=== PATIENT | male | born 1955 | race Hispanic/Latino ===

== ENCOUNTER 2016-10-21 14:22 | Observation (INO) | payer BC ==
[2016-10-21 14:32] VITALS: BMI 27.8
--- NOTE | 2016-10-21 14:57 | EDPD ---
HPI Stroke - General Time Seen by Provider: 10/21/16 14:32 Historian: Patient - History of Present Illness Narrative History of Present Illness (Free Text): 10/21/16 14:32 61 year old male presents to the emergency department complaining of sharp headache one hour prior to arrival followed by twitching of the eyelid and left sided body numbness. Denies weakness. Patient also reports a transient period of feeling not being able to talk well which has since resolved. Denies visual changes. No other complaints. Date:: 10/21/16 Time: 14:32 Onset:: Just prior to presenting Timing: Improved rTPA Inclusion/Exclusion - Refusal of Treatment Patient Refused Treatment: No - Inclusion Criteria for Altepase Patient is 18 years or Older: Yes The Clinical Diagnosis of Ischemic Stroke That is Causing a Potentially Disabling Neurological Deficit: Yes Time of Onset is Well Established to be Less Than 270 Minute Before Treatment Would Begin: Yes Risk/Benefit Discussed With Patient/Family Member Present: No - Exclusion Criteria for Altepase Uncontrolled Hypertension at Time of Treatment (Systolic BP above 185 or Diastolic BP above 110 mmHg): No - Warning to TPA With Conditions Following Conditions Weighed Against Anticipated Benefit: Yes Condition: Stroke Serevity Too Mild, Rapid Improvement Past Medical History - Provider Review Nursing Documentation Reviewed: Yes Family/Social History - Family/Social History Family History: Non-Contributory - Review Nursing documentation reviewed.: Yes Allergies/Home Meds Allergies/Adverse Reactions: Allergies No Known Allergies Allergy (Verified 10/21/16 14:31) Home Medications: Home Meds Medication Instructions Recorded Confirmed Unobtainable 10/21/16 10/21/16 Review of Systems - Physician Review All systems were reviewed & negative as marked: Yes - Review of Systems Eyes: absent: Vision Changes Neurological: Headache, Other (Left sided numbness, sensation of not being able to talk (resolved)) ED Stroke Physical Exam Temperature: Afebrile Blood Pressure: Hypertensive Pulse: Regular Respiratory Rate: Normal Appearance: Positive for: Well-Appearing, Non-Toxic, Comfortable Pain Distress: None Mental Status: Positive for: Alert and Oriented X 3 - Systems Exam Head: Present: Atraumatic, Normocephalic Pupils: Present: PERRL Extroacular Muscles: Present: EOMI Conjunctiva: Present: Normal Mouth: Present: Moist Mucous Membranes Pharnyx: Present: Normal Neck: Present: Normal Range of Motion Respiratory/Chest: Present: Clear to Auscultation, Good Air Exchange. No: Respiratory Distress, Accessory Muscle Use Cardiovascular: Present: Regular Rate and Rhythm, Normal S1, S2. No: Murmurs Abdomen: Present: Normal Bowel Sounds. No: Tenderness, Distention, Peritoneal Signs Back: Present: GCS, CN, SP Upper Extremity: Present: Normal Inspection. No: Cyanosis, Edema Lower Extremity: Present: Normal Inspection. No: Edema Neurologic: Present: GCS=15, CN II-XII Intact, Speech Normal, Motor Func Grossly Intact, Normal Sensory Function, Normal Cerebellar Funct, Norm Deep Tendon Reflexes, Gait Normal, Memory Normal, Normal 2Pt Descrimination. No: Pronator Drift, Facial Droop, Dysmetric Finger to Nose, Dysmetric Heel to Chin Skin: Present: Warm, Dry, Normal Color. No: Rashes Lymphatic: Present: OX3, NI, NC Psychiatric: Present: Alert, Oriented x 3, Normal Insight, Normal Concentration Medical Decision Making ED Course and Treatment: Impression: 61 year old male presents to the emergency department complaining of sharp headache one hour prior to arrival followed by twitching of the eyelid and left sided body numbness. Differential Diagnosis included but are not limited to: CVA vs TIA Plan: -- CT Head, EKG, Chest X-ray -- Labs -- Reassess and disposition PROCEDURE: CT HEAD WITHOUT CONTRAST Military Technology Manager : OSMANY ANDRE MD HEMORRHAGE: No intracranial hemorrhage. BRAIN: There are multifocal low-attenuation areas in the right frontal subcortical, left parietal subcortical and left periatrial white matter. There is no mass, mass effect or abnormal extra-axial fluid collection. VENTRICLES: There is mild age-related global parenchymal volume loss and proportionate enlargement of the ventricles and cortical sulci. CALVARIUM: The skull base and calvarium are normal. PARANASAL SINUSES: There is chronic left maxillary sinusitis. There is fluid level in the left frontal sinus and chronic mild ethmoid sinusitis. MASTOID AIR CELLS: Unremarkable as visualized. No inflammatory changes. IMPRESSION: Multifocal right frontal subcortical, left parietal subcortical and left periatrial white matter changes are strictly nonspecific but statistically in this age group most compatible with chronic microangiopathic changes. The other differential considerations include age indeterminate infarct results and demyelination. If clinically indicated, an MRI of the brain without and with contrast may be performed for further evaluation. EKG shows NSR at 70 BPM with LVH, no ST elevations, normal intervals, interpreted by me. Progress Notes: Case discussed with Dr. Abdiaziz Holland on arrival who states the patient is not a TPA candidate secondary to low NIHSS score. 10/21/16 15:07 CT results reviewed. Aspirin ordered. 10/21/16 15:13 On reevaluation patient no longer has any symptoms. Reevaluation NIHSS score is 0, neurological exam unchanged. 10/21/16 16:22 Case discussed with Paige and will place on observation telemetry for TIA. - Critical Care Critical Care Minutes: 30 minutes - Lab Interpretations Lab Results: Lab Results 10/21/16 14:30: POC Glucose (mg/dL) 111 H I have reviewed the lab results: Yes Interpretation: All labs normal - RAD Interpretation Radiology Orders: 10/21/16 14:32 HEAD W/O (CODE STROKE) [CT] Stat 10/21/16 14:33 CHEST PORTABLE [RAD] Stat Radio Antenna Installer: Radiologist - EKG Interpretation Interpreted by ED Physician: Yes Type: 12 lead EKG - Scribe Statement The provider has reviewed the documentation as recorded by the Perlita Coronado Provider Scribe Attestation: All medical record entries made by the Arte were at my direction and personally dictated by me. I have reviewed the chart and agree that the record accurately reflects my personal performance of the history, physical exam, medical decision making, and the department course for this patient. I have also personally directed, reviewed, and agree with the discharge instructions and disposition. NIHSS Scale (Carver) Time Performed: 14:32 - How Severe is the Stoke Baseline Level of Consciousness: 0=Alert LOC to Questions: 0=Both comments correct LOC to commands: 0=Obeys both correctly Best Gaze: 0=Normal Visual: 0=No visual loss Facial: 0=Normal Motor Arm - Left: 0=No drift Motor Arm - Right: 0=No drift Motor Leg - Left: 0=No drift Motor Leg - Right: 0=No drift Limb Ataxia: 0=Absent Sensory: 0=Normal Best Language: 0=No aphasia Dysarthia: 0=Normal articulation Extinction & Inattention (Neglect): 0=Normal, no object Score: 0 Risk Level: No Stroke Risk Disposition/Present on Arrival - Present on Arrival Any Indicators Present on Arrival: No - Disposition Have Diagnosis and Disposition been Completed?: Yes Diagnosis: Transient cerebral ischemia Disposition: HOSPITALIZED Disposition Time: 15:31 Patient Plan: Observation Condition: FAIR
--- NOTE | 2016-10-21 15:01 | CT ---
PROCEDURE: CT HEAD WITHOUT CONTRAST. HISTORY: code stroke COMPARISON: None available. TECHNIQUE: Axial computed tomography images were obtained through the head/brain without intravenous contrast. Radiation dose: Total exam DLP = 774.23 mGy-cm. FINDINGS: HEMORRHAGE: No intracranial hemorrhage. BRAIN: There are multifocal low-attenuation areas in the right frontal subcortical, left parietal subcortical and left periatrial white matter. There is no mass, mass effect or abnormal extra-axial fluid collection. VENTRICLES: There is mild age-related global parenchymal volume loss and proportionate enlargement of the ventricles and cortical sulci. CALVARIUM: The skull base and calvarium are normal. PARANASAL SINUSES: There is chronic left maxillary sinusitis. There is fluid level in the left frontal sinus and chronic mild ethmoid sinusitis. MASTOID AIR CELLS: Unremarkable as visualized. No inflammatory changes. OTHER FINDINGS: None. IMPRESSION: Multifocal right frontal subcortical, left parietal subcortical and left periatrial white matter changes are strictly nonspecific but statistically in this age group most compatible with chronic microangiopathic changes. The other differential considerations include age indeterminate infarct results and demyelination. If clinically indicated, an MRI of the brain without and with contrast may be performed for further evaluation. Important findings were discussed with Dr. Carlisle on 09/23/2016 at 2:50 p.m.
--- NOTE | 2016-10-21 15:09 | RAD ---
HISTORY: cva COMPARISON: No prior. FINDINGS: LUNGS: The lungs are well inflated. PLEURA: No significant pleural effusion identified, no pneumothorax apparent. CARDIOVASCULAR: Normal. OSSEOUS STRUCTURES: No significant abnormalities. VISUALIZED UPPER ABDOMEN: Normal. OTHER FINDINGS: None. IMPRESSION: No active pulmonary disease.
[2016-10-21 15:46] LABS: ADD MANUAL DIFF? NO
[2016-10-21 15:58] LABS: ALKALINE PHOSPHATASE 57 U/L (38-133); ALT/SGPT 50 U/L (7-56); AST/SGOT 53 U/L (15-59); BILIRUBIN,TOTAL 1.1 mg/dL (0.2-1.3); BLOOD UREA NITROGEN 15 mg/dL (7-21); CALCIUM 9.3 mg/dL (8.4-10.5); CARBON DIOXIDE 28 mmol/L (21-33); CHLORIDE 99 mmol/L (98-107); CHOLESTEROL 196 mg/dL (130-200); GFR AFRICAN-AMERICAN > 60; GLUCOSE,RANDOM 101 mg/dL (70-110); POTASSIUM 3.9 mmol/L (3.6-5.0); SODIUM 137 mmol/L (132-148); TOTAL PROTEIN 8.4 g/dL (5.8-8.3)
[2016-10-21 16:02] LABS: BASO # 0.06 [, K/mm3] (0.0-2.0); BASO % 0.7 % (0.0-3.0); EOS # 0.2 (0.0-0.7); EOS % 2.7 % (1.5-5.0); GRAN # 4.73 (1.4-6.5); GRAN % 54.6 % (50.0-68.0); HEMATOCRIT 42.3 % (42.0-52.0); LYMPH # 2.9 (1.2-3.4); LYMPH % 33.8 % (22.0-35.0); MEAN CELL VOLUME 90.2 fL (80.0-105.0); MEAN CORPUSCULAR HEMOGLOBIN 31.6 pg (25.0-35.0); MEAN PLATELET VOLUME 11.6 fl (7.0-11.0); MONO # 0.7 (0.1-0.6); MONO % 8.2 % (1.0-6.0); PLATELET COUNT 229 [, 10^3/uL] (120.0-450.0); RED CELL DISTRIBUTION WIDTH 13.1 % (11.5-14.5); WHITE BLOOD COUNT 8.7 [, 10^3/ul] (4.5-11.0)
[2016-10-21 16:14] LABS: INR 1.05 (0.93-1.08); PARTIAL THROMBOPLASTIN TIME 26.4 Seconds (23.7-30.8)
[2016-10-21 16:18] LABS: TROPONIN I < 0.01 ng/mL
[2016-10-21 18:43] VITALS: RESP 18
--- NOTE | 2016-10-22 01:19 | HP ---
HISTORY OF PRESENT ILLNESS: The patient is a 61-year-old patient of Dr. Briggs who came to Emergenc y Room after he developed headache and facial twitching. He also noticed that he does not feel himse lf and he has some difficulty doing . He also felt some weird feeling in the left side of the b guillermo with some facial numbness, did not have any weakness. He also had some difficulty walking. By t he time he came to Emergency Room, his symptoms had resolved. Did not have any blurry vision, no diz ziness. Did feel lightheaded. Denies any fever or chills. Denies any nausea or vomiting. No histo ry of hemoptysis, no hematemesis. PAST MEDICAL HISTORY: Not very significant. ALLERGIES: Not allergic to any medications. MEDICATIONS AT HOME: He is not on any medication at home. SOCIAL HISTORY: Denies smoking or drinking. Just socially drinks. REVIEW OF SYSTEMS: Significant for just feeling weak and lightheaded at times. PHYSICAL EXAMINATION: GENERAL: He is awake and alert, communicative. VITAL SIGNS: He is afebrile, pulse 74, respirations 18, blood pressure 1__/94. LUNGS: Bilateral fair airflow, no rhonchi or crackle. HEART: S1, S4 audible. No murmur. ABDOMEN: Soft, nontender, no rebound, no guarding. NEUROLOGIC: The patient is awake and alert, communicative, nonfocal. LABORATORY DATA: WBC is 8.7, hemoglobin 14, hematocrit 42, platelet of 229. PT 11.3, INR 1.05. Eva jenelle: Sodium 137, potassium 3.9, chloride 99, CO2 of 29, BUN 15, creatinine 0.8, blood sugar of 11 1, his total protein is 8.4, first set of cardiac enzymes is negative. Total cholesterol 196, LDL is 119, HDL is 55. ASSESSMENT: 1. Headache with facial twitching 2. Hypertension. 3. Questionable transient ischemic attack. PLAN: Will place the patient in observation, start him on aspirin, statins and a small dose of amlod ipine. MRI of the brain and carotid Doppler has been ordered and neuro consult has been requested. We will reevaluate the patient in a.m. Issa Gibson MD cc: [phone] TT: 10/22/2016 01:18:33 mn
--- NOTE | 2016-10-22 02:22 | CON ---
DATE: 10/21/2016 HISTORY OF PRESENT ILLNESS: This is a 61-year-old white male with a past medical history not signifi cant, came here with the complaint of twitching of the eyelid and left-sided body numbness and called to evaluate the patient. PAST MEDICAL HISTORY: Not significant. ALLERGIES: No known drug allergies. REVIEW OF SYSTEMS: A 10-point review of system was negative. The patient also was complaining of he adaches one hour prior to coming to the hospital. PHYSICAL EXAMINATION: HEENT: Normocephalic, atraumatic. NECK: Supple. NEUROLOGIC: Alert, awake, orientated x 3. No aphasia. Cranial nerves II through XII were tested. Pupils reactive. EOM intact. Visual crenshaw full. No facial asymmetry. Tongue midline. MOTOR EXAMINATION: Moves all the extremities equally. Tone normal. Deep tendon reflexes 1+. Both plantars are downgoing. Sensory appears intact. Cerebellar gait deferred. IMPRESSION AND PLAN: Transient ischemic attack. CAT scan of the head was negative. Patient on aspi rin. Continue present management. We will follow up. Abdiaziz Holland MD cc: [id number] TT: 10/22/2016 02:21:56 Confirmation # [id number] Dictation # [id number] shoshana
[2016-10-22 09:10] VITALS: TEMP 97.5; O2SAT 97
[2016-10-22 09:19] VITALS: BP 119/65; PULSE 57
--- NOTE | 2016-10-22 15:20 | US ---
PROCEDURE: Bilateral carotid artery duplex ultrasound HISTORY: Carotid stenosis syncope PHYSICIAN(S): Fracisco Baltazar MD. TECHNIQUE: Duplex sonography and color-flow Doppler were used to evaluate the carotid bifurcations and limited segments of the vertebral arteries bilaterally. FINDINGS: There is mild smooth heterogeneous plaque noted at the carotid bifurcations bilaterally. The peak systolic velocity in the proximal right internal carotid artery is 69 cm/sec. This corresponds to a 20 to 39% proximal right ICA stenosis. Normal systolic velocities are noted in the proximal right external carotid artery. There is antegrade flow in the right vertebral artery. The peak systolic velocity in the proximal left internal carotid artery is 82 cm/sec. This corresponds to a 20 to 39% proximal left ICA stenosis. Normal systolic velocities are noted in the proximal left external carotid artery. There is antegrade flow in the left vertebral artery. IMPRESSION: 1. Bilateral 20-39% proximal ICA stenoses. 2. Antegrade flow in both vertebral arteries.
--- NOTE | 2016-10-22 15:44 | CARD ---
APPROVED REPORT EKG Measurement Heart [id number] <Conclusion> Normal sinus rhythm Minimal voltage criteria for LVH, may be normal variant Borderline ECG
--- NOTE | 2016-10-23 09:50 | DS ---
The patient is 61 years old seen and examined, doing well. He said his headache is gone. He has no facial numbness, no weakness, no tingling. PHYSICAL EXAMINATION: VITAL SIGNS: He is afebrile, pulse ____7, respirations 18, blood pressure 119/65. LUNGS: Bilateral fair airflow. No rhonchi or crackle. HEART: S1, S2 audible. No murmur. ABDOMEN: Soft, nontender. No rebound, no guarding. NEUROLOGIC: He is awake and alert, communicative. Moves all extremities. No pronator drift. Gait is normal. EXTREMITIES: Bilateral upper and lower extremities, sensory and motor are intact. LABORATORY EXAM: His chemistry: Sodium 137, potassium 3.9, chloride 99, CO2 of 28. BUN 15, creatin ine 0.8. Blood sugar 101. LFTs are within normal limits. CT scan of the head is unremarkable. Carotid Doppler is pending. It was recommended to the patient to have MRI of the brain done, but he refused. He states he is cla ustrophobic. X-ray chest is unremarkable. CT scan of the head shows multifocal right frontal subcortical, left parietal subcortical, and left p arietal white matter changes strictly nonspecific, but statistically in the age most compatible with chronic microangiopathic changes. Another differential consideration includes age-indeterminate infa rct or demyelination. PLAN: The patient is clinically stable. So we will be discharging the patient on Lipitor 10 mg rosalba y, aspirin 81 daily, and he will resume his blood pressure medication as he was taking at home. Issa Gibson MD cc: [phone] TT: 10/23/2016 09:50:07 radha
== END 2016-10-22 16:47 | disposition home or self-care (01) ==
LOC: ED 14:22 → ERH 15:31 → 3RNO 16:52
PROVIDERS: ADMIT Internal Medicine; ATTEND Internal Medicine
DX: G45.9 Transient cerebral ischemic attack, unspecified (principal); I10 Essential (primary) hypertension; J32.0 Chronic maxillary sinusitis; J32.2 Chronic ethmoidal sinusitis; F40.240 Claustrophobia
CPT/HCPCS: 36415; 70450; 71010; 80053; 80061; 82948; 83036; 84484; 85025; 85610; 85730; 86850; 86900; 93005; 93880; 99285; G0378